=== PATIENT | female | born 1985 | race Caucasian/White ===

== ENCOUNTER 2023-06-17 13:05 | Outpatient (CLI) | payer OTHER, SELFPAY ==
--- NOTE | ~2023-06-17 | US_ITS ---
EXAMINATION: US thyroid DATE: 06/17/2023 13:18 INDICATION: Nontoxic goiter TECHNIQUE: Multiple ultrasound images of the thyroid were obtained. COMPARISON: None. FINDINGS: The right thyroid lobe measures 5.6 x 1.8 x 2.3 cm. The left thyroid lobe measures 5.3 x 1.7 x 1.8 c m. Thyroid isthmus measures 6 mm in thickness. No discrete nodules identified. There is heterogeneous echogenicity with coarsened echotexture and diffuse increased vascular flow throughout the thyroid o n color Doppler which can be seen with thyroiditis. IMPRESSION: 1. Mildly enlarged thyroid with heterogeneous echogenicity, coarsened echotexture and diffuse increas ed vascular flow suggestive of thyroiditis. Reviewed, dictated and finalized at location A. IMPRESSION: 1. Mildly enlarged thyroid with heterogeneous echogenicity, coarsened echotextu re and diffuse increased vascular flow suggestive of thyroiditis.
== END 2023-06-17 13:06 ==
PROVIDERS: PCP Family Medicine; Visit Provider Family Medicine
DX: E04.9 Nontoxic goiter, unspecified (principal)
CPT/HCPCS: 76536

== ENCOUNTER 2023-11-28 05:02 | Emergency (ER) | payer OTHER, SELFPAY ==
--- NOTE | ~2023-11-28 | CT_ITS ---
EXAMINATION: CT abdomen pelvis w con DATE: 11/28/2023 07:53 INDICATION: Abdomen pain TECHNIQUE: Computed tomography (CT) of the abdomen and pelvis was performed with 100 cc Omnipaque 350 intravenous contrast. The dose-length product was 766.38 mGy-cm. Automated exposure control and iter ative reconstruction technique were employed. COMPARISON: CT dated 12/09/2014. FINDINGS: Lung bases are unremarkable. Heart size normal. No significant pleural or pericardial effus ion. Multiple liver cysts. The liver, spleen, pancreas, adrenal glands and kidneys are unremarkable. Gallbladder is present. No free air or free fluid. IUD present. No abnormal pelvic masses or fluid co llections. No acute osseous abnormality. IMPRESSION: 1. No acute abdominal abnormality. Reviewed, dictated and finalized at location B.
[2023-11-28 05:05] VITALS: BP 153/84; PULSE 78; RESP 16; TEMP 36.6; O2SAT 99
[2023-11-28 05:47] LABS: Basophils Percent Auto 0.3 % (0.2-1.2); Eosinophils Absolute Auto 0.1 K/mm3 (0-0.3); Eosinophils Percent Auto 0.9 % (0-4.4); Hematocrit 39.7 % (37.0-47.0); Hemoglobin 13.9 g/dL (12.0-15.0); Immature Granulocyte Absolute 0.02 K/mm3 (0.00-0.031); Immature Granulocyte Percent A 0.3 % (0-0.5); Lymphocytes Absolute Auto 2.26 K/mm3 (0.9-3.2); Lymphocytes Percent Auto 30.1 % (18.3-44.2); Mean Corpuscular Hemoglobin 32.2 pg (26-34); Mean Corpuscular Volume 91.9 fl (80-100); Mean Platelet Volume 9.4 fl (7.4-10.4); Monocytes Absolute Auto 0.5 K/mm3 (0.1-0.6); Monocytes Percent Auto 7.2 % (2.6-8.5); Neutrophils Absolute Auto 4.6 K/mm3 (1.3-6.7); Neutrophils Percent Auto 61.2 % (45.5-73.1); Platelet Count Result 280 k/mm3 (150-375); Red Blood Count 4.32 M/mm3 (4.2-5.4); White Blood Count 7.5 K/mm3 (4.5-10.0)
[2023-11-28 05:59] LABS: Alanine Aminotransferase 29 U/L (6-35); Albumin Level 4.7 g/dL (3.5-5.1); Alkaline Phosphatase 66 U/L (38-126); Anion Gap 10 mmol/L (4-12); Aspartate Amino Transferase 26 U/L (14-36); Bilirubin,Total 0.6 mg/dL (0.2-1.3); Blood Urea Nitrogen 13 mg/dL (7-17); Calcium 9.6 mg/dL (8.4-10.2); Carbon Dioxide 24 mmol/L (22-30); Chloride 104 mmol/L (98-107); Estimated CRCL calculation 131 ml/min; Estimated Glomerular Filt Rate > 60; Glucose 106 mg/dL (65-110); Lipase 57 U/L (23-300); Potassium 3.8 mmol/L (3.4-5.0); Sodium 138 mmol/L (137-145)
[2023-11-28 06:49] VITALS: BP 128/80; PULSE 61; RESP 18; O2SAT 98
--- NOTE | 2023-11-28 07:06 | ED.ABDPAIN ---
HPI - Abdominal Pain General Chief Complaint: Abdominal Pain Stated Complaint: Back pain, abd pain Time Seen by Provider: 11/28/23 07:04 Source: patient Mode of arrival: ambulatory Limitations: no limitations History of Present Illness HPI narrative: 38 YEARS OLD WHITE FEMALE COMPLAINING OF LOWER BACK PAIN RADIATING TO THE ABDOMEN, STARTED YESTERDAY. SHE DENIES ANY FEVER, CHILLS, NAUSEA, VOMITING, URINARY SYMPTOMS, DIARRHEA, CONSTIPATION, VAGINAL BLEEDING OR DISCHARGE. BETTER WITH ICE PACK, WORSE SOMETIME WITH CERTAIN ACTIVITIES. PATIENT REPORTED HISTORY OF PANCREATITIS AND DID NOT HAVE ABDOMINAL PAIN AT THAT TIME THAT IS WHY SHE BELIEVED THAT HIGH LIKELY SHE HAVE FLARE UP OF HER PANCREAS AT THIS TIME. Related Data Home Medications Medication Instructions Recorded Confirmed levonorgestrel 21 mcg/24 hr (up to 1 device intrauterine ONCE 06/11/23 06/11/23 9 years) 52 mg intrauterine device (Mirena) Allergies Allergy/AdvReac Type Severity Reaction Status Date / Time No Known Allergies Allergy Verified 11/28/23 05:09 Review of Systems Review of Systems: All systems reviewed & are unremarkable except as noted in HPI and below PMFSH Past Medical History Medical History Anxiety Family History Family History Father Diabetes mellitus Depression Sibling Depression Grandparent Skin cancer Depression Social History Social History Social History: Smoking status: Never smoker Second hand tobacco smoke exposure: No Alcohol intake: current Alcohol use details: Occasionally Substance use: never Substance use type: does not use Do You Feel Safe in your Home?: Yes Lack of Transportation: No Lack of Food: Never True Current Housing: I Have Housing Concerned About Future Housing: No Difficulty Paying Gas/Electric Bills: No Difficulty Paying for Meds: No Currently Unemployed: No Education: Master's Degree or Higher Difficulty w/ Childcare or Family Care: No Living arrangements: with family Occupation/Education: occupation Additional occupation/education comments: [employer] Gender identity (if verbalized by the patient): Female Sexual Orientation (if Verbalized by the Patient): Straight or Heterosexual Exam Narrative: GENERAL APPEARANCE: WELL-DEVELOPED, WELL-NOURISHED SKIN: NORMAL COLOR HEAD: NORMOCEPHALIC, NONTRAUMATIC EYES: CLEAR CONJUNCTIVA ENT: OROPHARYNX NORMAL, EARS NORMAL, NOSE NORMAL NECK: SUPPLE, NONTENDER CHEST AND RESPIRATORY: AIRWAY PATENT, NO RESPIRATORY DISTRESS, NO ACCESSORY MUSCLE USE HEART: REGULAR RATE/RHYTHM ABDOMEN: SOFT, MILD TENDERNESS AT THE LOWER BACK BILATERALLY, NO BRUISES, NO SWELLING, NO RASH , NO ORGANOMEGALY, QUIET BOWEL SOUNDS VASCULAR: NORMAL PERIPHERAL PULSES, NORMAL CAPILLARY REFILL. MUSCULOSKELETAL: NORMAL RANGE OF MOTION, NONTENDER BACK NEUROLOGIC: ALERT AND ORIENTED ?3, TOY PACKER IS NORMAL TESTED, NO GROSS MOTOR DEFICIT Course Vital Signs Vital signs: Vital Signs Temperature 36.6 C 11/28/23 05:05 Pulse Rate 78 11/28/23 05:05 Respiratory Rate 16 11/28/23 05:05 Blood Pressure 153/84 H 11/28/23 05:05 Pulse Oximetry 99 11/28/23 05:05 Oxygen Delivery Room Air 11/28/23 05:05 Temperature 36.6 C 11/28/23 05:05 Pulse Rate 61 11/28/23 06:49 Respiratory Rate 18 11/28/23 06:49 Blood Pressure 128/80 11/28/23 06:49 Pulse Oximetry 98 11/28/23 06:49 Oxygen Delivery Room Air 11/28/23 05:05 MDM - Abdominal Pain MDM Narrative Medica
[2023-11-28 07:07] LABS: Add Urine Microscopic? YES; Appearance Urine Clear (Clear); Bacteria Urine 1+ /hpf; Bilirubin Urine Negative (Negative); Blood Urine Negative (Negative); Color Urine Yellow (Yellow); Glucose Urine UA Negative (Negative); Ketones Urine Negative (Negative); Leukocyte Esterase Ur Trace LEU/UL (Negative); Nitrate Urine Negative (Negative); Non Pathogenic Casts 0-2; Protein Urine Negative (Negative); RBC Urine 0-2 /hpf (0-2); Specific Grav Ur 1.007 (1.001-1.035); Squamous Epithelial Cell Urine Occasional /hpf (Few); Urobilinogen Urine 0.2 mg/dL (<2.0); WBC Urine 0-5 /hpf (0-3)
[2023-11-28] MEDS: ONDANSETRON INJ 4 MG/2 ML VIAL IV PUSH (07:24)
[2023-11-28] MEDS: HYDROmorphone HCL INJ (*CRX) 1 MG/ML SYR 0.5 MG IV PUSH (07:24)
[2023-11-28] MEDS: SODIUM CHLORIDE 0.9% IV 1,000 ML 999 ML IV CONT (07:24)
[2023-11-30 14:27] LABS: BEDSIDEPREGUCG Negative (Negative)
== END 2023-11-28 08:37 | disposition home or self-care (01) ==
PROVIDERS: Student in an Organized Health Care Education/Training Program; Emergency Provider Emergency Medicine; PCP Family Medicine
DX: M54.50 Low back pain, unspecified (principal); F41.9 Anxiety disorder, unspecified; Z97.5 Presence of (intrauterine) contraceptive device
CPT/HCPCS: 36415; 74177; 80053; 81001; 81025; 83690; 85025; 96361; 96374; 96375; 99284; J1170; J2405; J7030; Q9967